=== PATIENT | female | born 1955 | race African-American/Black ===

== ENCOUNTER 2017-03-20 01:46 | Emergency (ER) | payer MEDICARE, MEDICAID | END 2017-03-20 05:11 | disposition home or self-care (01) | LOC: ERS 01:46 | DX: M10.9 Gout, unspecified (principal); I10 Essential (primary) hypertension; E66.9 Obesity, unspecified | CPT/HCPCS: 99283 ==

== ENCOUNTER 2017-03-27 08:35 | Emergency (ER) | payer MEDICARE, MEDICAID ==
--- NOTE | 2017-03-27 09:27 | RAD ---
FRONTAL VIEW CHEST: Comparison: 04-23-08 Indication: Cough with difficulty breathing. FINDINGS: The cardiac silhouette is prominent. No lobar consolidation, significant effusion, or discrete pneumo thorax. IMPRESSION: 1. No focal consolidation. 2. Prominent cardiac silhouette. POS: [facility]
[2017-03-27] MEDS ORDERED: Lisinopril/Hydrochlorothiazide 20 mg/12.5 mg Tablet PO SCH (10:00)
== END 2017-03-27 10:42 | disposition home or self-care (01) ==
LOC: ERS 08:35
DX: J20.9 Acute bronchitis, unspecified (principal); I10 Essential (primary) hypertension; J45.909 Unspecified asthma, uncomplicated; E66.9 Obesity, unspecified; M10.9 Gout, unspecified; Z79.899 Other long term (current) drug therapy
CPT/HCPCS: 71045; 93005; 94640; J7620

== ENCOUNTER 2018-04-05 11:31 | Emergency (ER) | payer MEDICARE, OTHER ==
[2018-04-05] MEDS ORDERED: predniSONE 20 MG TAB ONE (12:37)
--- NOTE | 2018-04-05 14:03 | RAD ---
PORTABLE CHEST: HISTORY: Cough. COMPARISON: 03/27/2017 FINDINGS: Heart size appears borderline to slightly enlarged. There are atherosclerotic changes of the aorta. The lungs are clear of any infiltrative process. There are no signs of failure. IMPRESSION: No active intrathoracic disease. Stable chest. POS: [facility]
== END 2018-04-05 14:30 | disposition home or self-care (01) ==
LOC: ERS 11:31
DX: J45.901 Unspecified asthma with (acute) exacerbation (principal); I10 Essential (primary) hypertension; E66.9 Obesity, unspecified; J45.909 Unspecified asthma, uncomplicated; F32.9 Major depressive disorder, single episode, unspecified
CPT/HCPCS: 71045; 94640; J7506; J7620

== ENCOUNTER 2023-05-06 07:53 | Inpatient (IN) | payer OTHER ==
[2023-05-06] MEDS ORDERED: Ipratropium/Albuterol 3 ML NEB ONE ×2 (08:38→14:57)
[2023-05-06 08:40] LABS: #Basophils 0.1 thou/uL (0.0-0.2); #Eosinphils 0.1 thou/uL (0.0-0.7); #Monocytes 0.8 thou/uL (0.11-0.59); #Neutrophils 3.1 thou/uL (1.40-6.50); %Basophils 0.9 % (0.0-1.0); %Eosinophils 1.1 % (0.0-10.0); %Lymphocytes 24.6 % (21.0-51.0); %Monocytes 14.8 % (0.0-10.0); %Neutrophils 58.4 % (42.0-75.0); Hematocrit 39.6 % (36.0-47.0); Hemoglobin 12.2 g/dL (12.0-16.0); Mean Corpuscular HGB CONC 30.8 g/dL (32.0-36.0); Mean Corpuscular Hemoglobin 29.8 pg (27.0-31.0); Mean Corpuscular Volume 96.6 fl (78.0-98.0); Mean Platelet Volume 11.6 fL (7.4-10.4); Platelet Count 179 10x3/uL (130-400); RBC Distribution Width 14.5 % (11.5-14.5); White Blood Cell (WBC) Count 5.3 10x3/uL (4.8-10.8)
[2023-05-06 08:56] LABS: ALT (SGPT) 21 U/L (8-55); AST (SGOT) 25 U/L (5-34); Alkaline Phosphatase 116 U/L (40-110); Anion Gap 14 mmol/L (10-20); BUN (Urea Nitrogen) 12 mg/dL (9.8-20.1); Calc. Creatinine Clearance 0 mL/min (70-130); Calcium 9.4 mg/dL (7.8-10.44); Carbon Dioxide 28 mmol/L (23-31); Chloride 98 mmol/L (98-107); Estimated GFR 78; Globulin 3.7 g/dL (2.4-3.5); Glucose 98 mg/dL (80-115); Potassium 4.2 mmol/L (3.5-5.1); Protein, Total 7.7 g/dL (5.8-8.1); Sodium 136 mmol/L (136-145)
[2023-05-06 09:01] LABS: Troponin I 0.022 ng/mL (< 0.028)
[2023-05-06] MEDS ORDERED: Enoxaparin 80 MG (0.8 mL) SYRINGE ONE (09:08)
[2023-05-06] MEDS ORDERED: Aspirin Chewable 81 MG TAB ONE (09:08)
[2023-05-06] MEDS ORDERED: methylPREDNISolone Sod Succ/PF 125 MG/2 ML VIAL ONE (09:08)
[2023-05-06] MEDS ORDERED: dilTIAZem 25 MG/5 ML VIAL ONE (09:09)
[2023-05-06 09:15] LABS: INR-International Normal Ratio 1.1; PTT 34.6 sec (22.9-36.1); Prothrombin Time 14.4 sec (12.0-14.7)
[2023-05-06] MEDS ORDERED: Furosemide 40 MG (4 mL) VIAL ONE ×2 (10:08→14:53)
[2023-05-06] MEDS ORDERED: hydrALAZINE 20 MG/ML VIAL SLOW IVP PRN (10:44)
[2023-05-06] MEDS ORDERED: dilTIAZem 125 MG in Sodium Chloride 0.9% 100 ML IVPB SCH (11:15)
[2023-05-06 11:26] LABS: Hemoglobin A1c 5.1 % (4.0-6.0)
[2023-05-06 11:29] LABS: Cardiac Risk 3.2 (Less than 4.5)
[2023-05-06] MEDS ORDERED: hydrALAZINE 20 MG/ML VIAL ONE (11:40)
[2023-05-06 11:43] LABS: Magnesium 1.9 mg/dL (1.6-2.6)
[2023-05-06 12:13] LABS: Troponin I 0.018 ng/mL (< 0.028)
[2023-05-06] MEDS: dilTIAZem 125 MG, Admixture Fee 1 EACH in Sodium Chloride 0.9% 100 ML IVPB SCH (13:41)
[2023-05-06] MEDS: Furosemide 40 MG (4 mL) VIAL SLOW IVP SCH (15:45)
[2023-05-06 16:56] VITALS: BMI 60.2
[2023-05-06] MEDS: Carvedilol 3.125 MG TAB PO SCH (20:35)
[2023-05-06] MEDS: Acetaminophen 325 MG TAB PO PRN (20:51)
[2023-05-06] MEDS: clonazePAM 1 MG TAB PO PRN (20:52)
[2023-05-06] MEDS: Albuterol 2.5 MG (3 mL) NEB NEB PRN (20:57)
[2023-05-06] MEDS: Ketorolac Tromethamine 30 MG (1 mL) VIAL IVP SCH (22:11)
[2023-05-06] MEDS: Enoxaparin 80 MG (0.8 mL) SYRINGE SC SCH (22:14)
[2023-05-06] MEDS: Enoxaparin 100 MG (1 mL) SYRINGE SC SCH (22:14)
[2023-05-07 02:54] LABS: #Monocytes 0.4 thou/uL (0.11-0.59); #Neutrophils 4.7 thou/uL (1.40-6.50); %Lymphocytes 8.2 % (21.0-51.0); %Monocytes 7.2 % (0.0-10.0); %Neutrophils 83.9 % (42.0-75.0); Hematocrit 35.7 % (36.0-47.0); Hemoglobin 11.3 g/dL (12.0-16.0); Mean Corpuscular HGB CONC 31.7 g/dL (32.0-36.0); Mean Corpuscular Hemoglobin 30.3 pg (27.0-31.0); Mean Corpuscular Volume 95.7 fl (78.0-98.0); Mean Platelet Volume 11.8 fL (7.4-10.4); Platelet Count 182 10x3/uL (130-400); RBC Distribution Width 14.5 % (11.5-14.5); Red Blood Cell (RBC) Count 3.73 mill/uL (4.20-5.40); White Blood Cell (WBC) Count 5.6 10x3/uL (4.8-10.8)
[2023-05-07 03:14] LABS: Troponin I 0.021 ng/mL (< 0.028)
[2023-05-07 03:16] LABS: Magnesium 1.7 mg/dL (1.6-2.6)
[2023-05-07 03:20] LABS: Anion Gap 16 mmol/L (10-20); BUN (Urea Nitrogen) 12 mg/dL (9.8-20.1); Calc. Creatinine Clearance 197 mL/min (70-130); Calcium 9.1 mg/dL (7.8-10.44); Carbon Dioxide 28 mmol/L (23-31); Chloride 97 mmol/L (98-107); Estimated GFR 87; Glucose 168 mg/dL (80-115); Potassium 3.8 mmol/L (3.5-5.1); Sodium 137 mmol/L (136-145)
[2023-05-07] MEDS: dilTIAZem 125 MG, Admixture Fee 1 EACH in Sodium Chloride 0.9% 100 ML IVPB SCH (05:54)
[2023-05-07] MEDS: Mometasone 200 MCG/Formoterol 5 MCG 120 PUFF INHALER INH SCH (07:25)
[2023-05-07] MEDS ORDERED: Electrolyte Replacement Protocol FS PRN (07:45)
[2023-05-07] MEDS: Magnesium 2 GM/50 ML(in water) 2 GM in Premix 1 BAG IVPB SCH (09:33)
[2023-05-07] MEDS: Losartan 25 MG TAB PO SCH (09:34)
[2023-05-07] MEDS: Enoxaparin 100 MG (1 mL) SYRINGE SC SCH (09:35)
[2023-05-07] MEDS: Enoxaparin 80 MG (0.8 mL) SYRINGE SC SCH (09:35)
[2023-05-07] MEDS: ALPRAZolam 1 MG TAB PO PRN (22:35)
[2023-05-07] MEDS: traMADol HCl 50 MG TAB PO SCH (22:35)
[2023-05-08 05:43] LABS: #Monocytes 1.3 thou/uL (0.11-0.59); #Neutrophils 7.8 thou/uL (1.40-6.50); %Basophils 0.1 % (0.0-1.0); %Eosinophils 0.1 % (0.0-10.0); %Lymphocytes 12.8 % (21.0-51.0); %Monocytes 12.1 % (0.0-10.0); %Neutrophils 74.6 % (42.0-75.0); Hematocrit 37.4 % (36.0-47.0); Hemoglobin 11.7 g/dL (12.0-16.0); Mean Corpuscular HGB CONC 31.3 g/dL (32.0-36.0); Mean Corpuscular Hemoglobin 30.6 pg (27.0-31.0); Mean Corpuscular Volume 97.9 fl (78.0-98.0); Mean Platelet Volume 11.3 fL (7.4-10.4); Platelet Count 218 10x3/uL (130-400); RBC Distribution Width 14.8 % (11.5-14.5); Red Blood Cell (RBC) Count 3.82 mill/uL (4.20-5.40); White Blood Cell (WBC) Count 10.4 10x3/uL (4.8-10.8)
[2023-05-08] MEDS: Losartan 25 MG TAB PO SCH (08:34)
[2023-05-08] MEDS: traMADol HCl 50 MG TAB PO PRN (08:34)
[2023-05-08 09:28] LABS: Anion Gap 16 mmol/L (10-20); BUN (Urea Nitrogen) 16 mg/dL (9.8-20.1); Calc. Creatinine Clearance 166 mL/min (70-130); Calcium 8.8 mg/dL (7.8-10.44); Carbon Dioxide 30 mmol/L (23-31); Chloride 97 mmol/L (98-107); Estimated GFR 73; Glucose 105 mg/dL (80-115); Potassium 3.6 mmol/L (3.5-5.1); Sodium 139 mmol/L (136-145)
[2023-05-08] MEDS: FLU VACC QS2023(65UP)/MF59C/PF 60 MCG/0.5 ML SYRINGE IM ONE (21:33)
[2023-05-08] MEDS: dilTIAZem 125 MG, Admixture Fee 1 EACH in Sodium Chloride 0.9% 100 ML IVPB SCH (21:35)
[2023-05-09 06:26] LABS: Hematocrit 39.9 % (36.0-47.0); Hemoglobin 11.8 g/dL (12.0-16.0); Manual Diff?? YES; Mean Corpuscular HGB CONC 29.6 g/dL (32.0-36.0); Mean Corpuscular Hemoglobin 29.9 pg (27.0-31.0); Mean Platelet Volume 11.9 fL (7.4-10.4); Platelet Count 217 10x3/uL (130-400); RBC Distribution Width 14.6 % (11.5-14.5); Red Blood Cell (RBC) Count 3.95 mill/uL (4.20-5.40); White Blood Cell (WBC) Count 6.3 10x3/uL (4.8-10.8)
[2023-05-09 06:47] LABS: Anion Gap 13 mmol/L (10-20); BUN (Urea Nitrogen) 19 mg/dL (9.8-20.1); Calc. Creatinine Clearance 146 mL/min (70-130); Calcium 9.3 mg/dL (7.8-10.44); Carbon Dioxide 36 mmol/L (23-31); Chloride 93 mmol/L (98-107); Estimated GFR 62; Glucose 73 mg/dL (80-115); Potassium 4.4 mmol/L (3.5-5.1); Sodium 138 mmol/L (136-145)
[2023-05-09 06:59] LABS: Delete Auto Diff?? YES
[2023-05-09 07:45] LABS: CellaVision Operator ID LAB.KW3; Hypochromia SLIGHT = 6-15 cells HPF (0-5); Lymphocytes 39 % (21-51); Monocytes 18 % (0-10); Neutrophil 40 % (42-75); Platelet Adequacy Comment Platelets Normal; Polychromasia SLIGHT = 2-3 cells HPF (0-2); Reactive Lymphocytes 2 % (0-10); Total Cell Count 100
[2023-05-09] MEDS: Metolazone 2.5 MG TAB PO SCH (16:21)
[2023-05-09] MEDS: ALPRAZolam 1 MG TAB PO SCH (20:40)
[2023-05-10] MEDS ORDERED: Regadenoson 0.4 MG/5 ML SYRINGE ONE (09:38)
[2023-05-10] MEDS: Enoxaparin 80 MG (0.8 mL) SYRINGE SC SCH (11:16)
[2023-05-10 15:49] VITALS: BP 136/64; TEMP 97.6
[2023-05-10] MEDS: Rivaroxaban 10 MG TAB PO SCH (17:21)
[2023-05-10] MEDS ORDERED: Apixaban 5 MG TAB PO SCH (21:00)
[2023-05-11] MEDS ORDERED: Rivaroxaban 10 MG TAB PO SCH (17:00)
== END 2023-05-10 19:20 | disposition home or self-care (01) | DRG 291 ==
LOC: ERS 07:53 → ERHOLD 10:09 → 2NO 16:18 → OBSVTOIN 05-07 09:10
PROVIDERS: ADMIT Family Medicine; ATTEND Family Medicine
DX: I11.0 Hypertensive heart disease with heart failure (principal); I50.43 Acute on chronic combined systolic (congestive) and diastolic (congestive) heart failure; Z68.44 Body mass index [BMI] 60.0-69.9, adult; J45.909 Unspecified asthma, uncomplicated; I42.9 Cardiomyopathy, unspecified; M10.9 Gout, unspecified; E66.01 Morbid (severe) obesity due to excess calories; I48.91 Unspecified atrial fibrillation; F41.9 Anxiety disorder, unspecified; Z79.51 Long term (current) use of inhaled steroids; Z79.899 Other long term (current) drug therapy; Z91.199 Patient's noncompliance with other medical treatment and regimen due to unspecified reason
CPT/HCPCS: 36415; 71045; 78452; 80048; 80053; 80061; 83036; 83605; 83735; 83880; 84443; 84484; 85025; 85520; 85610; 85730; 93005; 93017; 93306; 94640; 94760; 96372; 96374; 96375; A9502; J0360; J1650; J1885; J1940; J2785; J2930; J3475; J3490; J7611; J7620

== ENCOUNTER 2023-09-18 07:50 | Inpatient (IN) | payer OTHER ==
[2023-09-18] MEDS ORDERED: cefTRIAXone (ROCEPHIN) 2 GM VIAL ONE ×2 (09:34→09:54)
[2023-09-18] MEDS ORDERED: Furosemide 40 MG (4 mL) VIAL ONE (09:34)
[2023-09-18] MEDS ORDERED: Nitroglycerin 2% Ointment 1 INCH/1 GM Packet ONE (09:34)
[2023-09-18] MEDS ORDERED: Sodium Chloride 0.9% 100 ML ONE ×2 (09:34→09:54)
[2023-09-18] MEDS ORDERED: dilTIAZem 25 MG/5 ML VIAL ONE (09:35)
[2023-09-18 09:41] LABS: #Basophils 0.06 10x3/uL (0.0-0.2); %Basophils 0.9 % (0.0-1.0); %Lymphocytes 12.3 % (21.0-51.0); %Monocytes 13.7 % (0.0-10.0); %Neutrophils 70.8 % (42.0-75.0); Hematocrit 38.2 % (36.0-47.0); Hemoglobin 12.1 g/dL (12.0-16.0); Mean Corpuscular HGB CONC 31.7 g/dL (32.0-36.0); Mean Corpuscular Volume 94.6 fL (78.0-98.0); Mean Platelet Volume 11.9 fL (7.4-10.4); Platelet Count 165 10x3/uL (130-400); RBC Distribution Width 16.8 % (11.5-14.5); Red Blood Cell (RBC) Count 4.04 mill/uL (4.20-5.40)
[2023-09-18 09:59] LABS: ALT (SGPT) 29 U/L (8-55); AST (SGOT) 29 U/L (5-34); Albumin 3.7 g/dL (3.4-4.8); Alkaline Phosphatase 138 U/L (40-110); Anion Gap 14 mmol/L (10-20); BUN (Urea Nitrogen) 19 mg/dL (9.8-20.1); Bilirubin, Total 2.1 mg/dL (0.2-1.2); Calc. Creatinine Clearance 0 mL/min (70-130); Calcium 9.4 mg/dL (7.8-10.44); Carbon Dioxide 32 mmol/L (23-31); Chloride 100 mmol/L (98-107); Estimated GFR 76; Globulin 3.8 g/dL (2.4-3.5); Glucose 97 mg/dL (80-115); Magnesium 1.8 mg/dL (1.6-2.6); Potassium 3.4 mmol/L (3.5-5.1); Protein, Total 7.5 g/dL (5.8-8.1); Sodium 143 mmol/L (136-145)
[2023-09-18 10:05] LABS: Troponin I 0.015 ng/mL (< 0.028)
[2023-09-18] MEDS ORDERED: Acetaminophen 325 MG TAB PO PRN (11:45)
[2023-09-18] MEDS ORDERED: Senokot S 8.6-50 MG TAB PO PRN (11:45)
[2023-09-18 17:56] VITALS: BMI 55.2
[2023-09-18] MEDS: Potassium Chloride 20 MEQ TAB PO SCH ×2 (19:28→20:22)
[2023-09-18] MEDS: Furosemide 40 MG (4 mL) VIAL SLOW IVP SCH (20:22)
[2023-09-18] MEDS: Vancomycin (BATCH) 2.5 GM in Premix 1 BAG IVPB SCH (20:22)
[2023-09-18] MEDS: Famotidine 20 MG TAB PO SCH (22:36)
[2023-09-19] MEDS: Ipratropium/Albuterol 3 ML NEB NEB PRN (06:28)
[2023-09-19] MEDS: HYDROcodone/Acetaminophen 5/325 mg Tablet PO PRN (08:00)
[2023-09-19] MEDS: Losartan 25 MG TAB PO SCH (08:01)
[2023-09-19] MEDS: Enoxaparin 40 MG (0.4 mL) SYRINGE SC SCH (08:01)
[2023-09-19] MEDS: Apixaban 5 MG TAB PO SCH (20:42)
[2023-09-19 23:54] LABS: Anion Gap 13 mmol/L (10-20); BUN (Urea Nitrogen) 20 mg/dL (9.8-20.1); Calc. Creatinine Clearance 158 mL/min (70-130); Calcium 9.2 mg/dL (7.8-10.44); Carbon Dioxide 33 mmol/L (23-31); Chloride 102 mmol/L (98-107); Estimated GFR 75; Glucose 82 mg/dL (80-115); Potassium 4.4 mmol/L (3.5-5.1); Sodium 144 mmol/L (136-145)
[2023-09-20 00:02] LABS: Troponin I 0.011 ng/mL (< 0.028)
[2023-09-20 05:22] LABS: #Basophils 0.06 10x3/uL (0.0-0.2); %Basophils 0.9 % (0.0-1.0); %Eosinophils 4.1 % (0.0-10.0); %Monocytes 16.8 % (0.0-10.0); Hematocrit 35.2 % (36.0-47.0); Mean Corpuscular HGB CONC 31.3 g/dL (32.0-36.0); Mean Corpuscular Hemoglobin 29.5 pg (27.0-31.0); Mean Corpuscular Volume 94.4 fL (78.0-98.0); Mean Platelet Volume 12.1 fL (7.4-10.4); Platelet Count 162 10x3/uL (130-400); RBC Distribution Width 16.6 % (11.5-14.5); Red Blood Cell (RBC) Count 3.73 mill/uL (4.20-5.40)
[2023-09-20 05:42] LABS: Anion Gap 14 mmol/L (10-20); BUN (Urea Nitrogen) 21 mg/dL (9.8-20.1); Calc. Creatinine Clearance 167 mL/min (70-130); Calcium 8.7 mg/dL (7.8-10.44); Carbon Dioxide 34 mmol/L (23-31); Chloride 101 mmol/L (98-107); Estimated GFR 79; Glucose 95 mg/dL (80-115); Magnesium 1.5 mg/dL (1.6-2.6); Sodium 145 mmol/L (136-145)
[2023-09-20] MEDS ORDERED: Magnesium Sulfate 4 GM in Sodium Chloride 0.9% 250 ML 250 ML IVPB SCH (07:30)
[2023-09-20] MEDS ORDERED: Electrolyte Replacement Protocol 1 EACH FS SCH (07:30)
[2023-09-20] MEDS ORDERED: Electrolyte Replacement Protocol FS PRN (08:00)
[2023-09-20 08:15] VITALS: BMI 55.0
[2023-09-20] MEDS: Magnesium Sulfate In Water 4 GM in Premix 1 BAG IVPB SCH (08:49)
[2023-09-20] MEDS: Aspirin 81 mg Enteric Coated Tablet PO SCH (08:50)
[2023-09-20] MEDS: Empagliflozin 10 MG TAB PO SCH (08:51)
[2023-09-20] MEDS: Cefepime 2 GM in Sodium Chloride 0.9% 100 ML IVPB SCH (21:13)
[2023-09-20] MEDS: Vancomycin (BATCH) 2 GM in Premix 1 BAG IVPB SCH (22:03)
[2023-09-21 04:17] LABS: #Basophils 0.08 10x3/uL (0.0-0.2); %Basophils 1.2 % (0.0-1.0); %Eosinophils 5.2 % (0.0-10.0); %Monocytes 18.5 % (0.0-10.0); %Neutrophils 52.9 % (42.0-75.0); Hematocrit 40.2 % (36.0-47.0); Hemoglobin 12.1 g/dL (12.0-16.0); Mean Corpuscular HGB CONC 30.1 g/dL (32.0-36.0); Mean Corpuscular Hemoglobin 30.3 pg (27.0-31.0); Mean Corpuscular Volume 100.5 fL (78.0-98.0); Mean Platelet Volume 11.6 fL (7.4-10.4); Platelet Count 198 10x3/uL (130-400); RBC Distribution Width 16.5 % (11.5-14.5)
[2023-09-21 04:39] LABS: Vancomycin, Random 22.4 ug/mL (See Comment)
[2023-09-21 04:44] LABS: Anion Gap 18 mmol/L (10-20); BUN (Urea Nitrogen) 22 mg/dL (9.8-20.1); Calc. Creatinine Clearance 163 mL/min (70-130); Carbon Dioxide 30 mmol/L (23-31); Cardiac Risk 4.1 (Less than 4.5); Chloride 100 mmol/L (98-107); Cholesterol 119 mg/dl (< 200 Desired); Estimated GFR 77; Glucose 66 mg/dL (80-115); HDL Cholesterol 29 mg/dL (>60 Neg Risk); LDL Cholesterol, Calculated 81 mg/dL; Magnesium 1.8 mg/dL (1.6-2.6); Potassium 4.7 mmol/L (3.5-5.1); Sodium 143 mmol/L (136-145); Triglycerides 44 mg/dL (Less than 150)
[2023-09-21] MEDS: Vancomycin 1 GM in Premix 1 BAG IVPB SCH (11:42)
[2023-09-21] MEDS: Magnesium 2 GM/50 ML(in water) 2 GM in Premix 1 BAG IVPB SCH (15:14)
[2023-09-21] MEDS: Vancomycin HCl 750 MG in Sodium Chloride 0.9% 250 ML 250 ML IVPB SCH ×2 (23:12→23:27)
[2023-09-21] MEDS: VANCOMYCIN HCL IVPB SCH (23:30)
[2023-09-22 05:45] LABS: #Basophils 0.05 10x3/uL (0.0-0.2); %Basophils 0.6 % (0.0-1.0); %Eosinophils 3.4 % (0.0-10.0); %Lymphocytes 15.1 % (21.0-51.0); %Monocytes 17.7 % (0.0-10.0); %Neutrophils 62.7 % (42.0-75.0); Hematocrit 38.5 % (36.0-47.0); Hemoglobin 11.8 g/dL (12.0-16.0); Mean Corpuscular HGB CONC 30.6 g/dL (32.0-36.0); Mean Corpuscular Hemoglobin 30.3 pg (27.0-31.0); Mean Corpuscular Volume 98.7 fL (78.0-98.0); Mean Platelet Volume 11.2 fL (7.4-10.4); Platelet Count 184 10x3/uL (130-400); RBC Distribution Width 16.4 % (11.5-14.5)
[2023-09-22 05:56] LABS: Vancomycin, Random 26.6 ug/mL (See Comment)
[2023-09-22 06:03] LABS: Anion Gap 15 mmol/L (10-20); BUN (Urea Nitrogen) 24 mg/dL (9.8-20.1); Calc. Creatinine Clearance 156 mL/min (70-130); Calcium 8.9 mg/dL (7.8-10.44); Carbon Dioxide 32 mmol/L (23-31); Chloride 98 mmol/L (98-107); Estimated GFR 73; Glucose 87 mg/dL (80-115); Potassium 5.3 mmol/L (3.5-5.1); Sodium 140 mmol/L (136-145)
[2023-09-22] MEDS: Magnesium 2 GM/50 ML(in water) 2 GM in Premix 1 BAG IVPB SCH (08:59)
[2023-09-22 14:57] LABS: Anion Gap 13 mmol/L (10-20); BUN (Urea Nitrogen) 24 mg/dL (9.8-20.1); Calc. Creatinine Clearance 152 mL/min (70-130); Calcium 8.9 mg/dL (7.8-10.44); Carbon Dioxide 32 mmol/L (23-31); Chloride 97 mmol/L (98-107); Estimated GFR 71; Glucose 98 mg/dL (80-115); Sodium 137 mmol/L (136-145)
[2023-09-22] MEDS: Vancomycin 1 GM in Premix 1 BAG IVPB SCH (22:08)
[2023-09-23 04:14] LABS: #Basophils 0.09 10x3/uL (0.0-0.2); %Eosinophils 4.6 % (0.0-10.0); %Lymphocytes 12.9 % (21.0-51.0); %Monocytes 17.3 % (0.0-10.0); Hemoglobin 12.3 g/dL (12.0-16.0); Mean Corpuscular HGB CONC 32.4 g/dL (32.0-36.0); Mean Corpuscular Volume 92.7 fL (78.0-98.0); Mean Platelet Volume 10.9 fL (7.4-10.4); Platelet Count 163 10x3/uL (130-400); RBC Distribution Width 16.1 % (11.5-14.5)
[2023-09-23 04:56] LABS: Anion Gap 13 mmol/L (10-20); BUN (Urea Nitrogen) 26 mg/dL (9.8-20.1); Calc. Creatinine Clearance 157 mL/min (70-130); Calcium 9.1 mg/dL (7.8-10.44); Carbon Dioxide 31 mmol/L (23-31); Chloride 95 mmol/L (98-107); Estimated GFR 74; Glucose 84 mg/dL (80-115); Magnesium 2.1 mg/dL (1.6-2.6); Sodium 134 mmol/L (136-145)
[2023-09-23] MEDS: HYDROcodone/Acetaminophen 5/325 mg Tablet PO PRN (21:08)
[2023-09-24 04:20] LABS: Vancomycin, Random 35.7 ug/mL (See Comment)
[2023-09-24 04:22] LABS: Anion Gap 14 mmol/L (10-20); BUN (Urea Nitrogen) 29 mg/dL (9.8-20.1); Calc. Creatinine Clearance 147 mL/min (70-130); Calcium 8.9 mg/dL (7.8-10.44); Carbon Dioxide 33 mmol/L (23-31); Chloride 93 mmol/L (98-107); Estimated GFR 68; Glucose 96 mg/dL (80-115); Magnesium 2.1 mg/dL (1.6-2.6); Potassium 4.9 mmol/L (3.5-5.1); Sodium 135 mmol/L (136-145)
[2023-09-24 04:46] LABS: Hematocrit 35.9 % (36.0-47.0); Hemoglobin 11.4 g/dL (12.0-16.0); Mean Corpuscular HGB CONC 31.8 g/dL (32.0-36.0); Mean Corpuscular Hemoglobin 30.3 pg (27.0-31.0); Mean Corpuscular Volume 95.5 fL (78.0-98.0); Mean Platelet Volume 11.6 fL (7.4-10.4); Platelet Count 206 10x3/uL (130-400); RBC Distribution Width 15.9 % (11.5-14.5); Red Blood Cell (RBC) Count 3.76 mill/uL (4.20-5.40)
[2023-09-24 07:20] LABS: Eosinophils 11 % (0-10); Hypersegmented Neutrophil SLIGHT (None Seen); Large Platelets 5.9 % (0-5); Lymphocytes 17 % (21-51); Monocytes 16 % (0-10); Neutrophil 54 % (42-75); Platelet Adequacy Comment Platelets Normal; Polychromasia SLIGHT = 2-3 cells HPF (0-2)
[2023-09-24] MEDS: Furosemide 40 MG TAB PO SCH (09:56)
[2023-09-25 05:05] LABS: #Basophils 0.06 10x3/uL (0.0-0.2); %Basophils 0.7 % (0.0-1.0); %Eosinophils 3.5 % (0.0-10.0); %Lymphocytes 14.6 % (21.0-51.0); %Monocytes 18.4 % (0.0-10.0); %Neutrophils 62.2 % (42.0-75.0); Hemoglobin 10.4 g/dL (12.0-16.0); Mean Corpuscular HGB CONC 31.5 g/dL (32.0-36.0); Mean Corpuscular Volume 95.1 fL (78.0-98.0); Mean Platelet Volume 11.9 fL (7.4-10.4); Platelet Count 191 10x3/uL (130-400); RBC Distribution Width 15.8 % (11.5-14.5); Red Blood Cell (RBC) Count 3.47 mill/uL (4.20-5.40)
[2023-09-25 05:41] LABS: Anion Gap 18 mmol/L (10-20); BUN (Urea Nitrogen) 25 mg/dL (9.8-20.1); Calc. Creatinine Clearance 169 mL/min (70-130); Calcium 8.8 mg/dL (7.8-10.44); Carbon Dioxide 28 mmol/L (23-31); Chloride 94 mmol/L (98-107); Estimated GFR 83; Glucose 94 mg/dL (80-115); Magnesium 2.1 mg/dL (1.6-2.6); Potassium 5.3 mmol/L (3.5-5.1); Sodium 135 mmol/L (136-145)
[2023-09-25] MEDS ORDERED: Vancomycin (BATCH) 1.25 GM in Premix 1 BAG IVPB SCH ×2 (10:00→12:00)
[2023-09-25] MEDS ORDERED: Ibuprofen 200 MG TAB PO PRN (12:27)
[2023-09-25] MEDS: Furosemide 40 MG (4 mL) VIAL SLOW IVP SCH (14:02)
[2023-09-25] MEDS: LOKELMA 5 GM PACKET PO SCH (14:03)
[2023-09-26] MEDS: HYDROcodone/Acetaminophen 5/325 mg Tablet PO PRN (04:35)
[2023-09-26 05:17] LABS: #Basophils 0.05 10x3/uL (0.0-0.2); %Basophils 0.6 % (0.0-1.0); %Eosinophils 5.4 % (0.0-10.0); %Lymphocytes 15.3 % (21.0-51.0); %Neutrophils 63.5 % (42.0-75.0); Hematocrit 35.3 % (36.0-47.0); Hemoglobin 11.1 g/dL (12.0-16.0); Mean Corpuscular HGB CONC 31.4 g/dL (32.0-36.0); Mean Corpuscular Hemoglobin 30.6 pg (27.0-31.0); Mean Corpuscular Volume 97.2 fL (78.0-98.0); Mean Platelet Volume 11.6 fL (7.4-10.4); Platelet Count 234 10x3/uL (130-400); RBC Distribution Width 15.6 % (11.5-14.5); Red Blood Cell (RBC) Count 3.63 mill/uL (4.20-5.40)
[2023-09-26 05:39] LABS: Anion Gap 14 mmol/L (10-20); BUN (Urea Nitrogen) 23 mg/dL (9.8-20.1); Calc. Creatinine Clearance 180 mL/min (70-130); Calcium 9.2 mg/dL (7.8-10.44); Carbon Dioxide 31 mmol/L (23-31); Chloride 96 mmol/L (98-107); Estimated GFR 88; Glucose 97 mg/dL (80-115); Magnesium 2.2 mg/dL (1.6-2.6); Potassium 4.2 mmol/L (3.5-5.1); Sodium 137 mmol/L (136-145)
[2023-09-26] MEDS: dilTIAZem CD 120 MG CAP PO SCH (08:15)
[2023-09-26] MEDS ORDERED: Acetaminophen 500 MG TAB PO PRN (22:28)
[2023-09-27 15:50] VITALS: BP 114/74; TEMP 98.2
== END 2023-09-27 21:30 | disposition home health service (06) | DRG 291 ==
LOC: ERS 07:50 → ERHOLD 11:19 → 2NO 17:22
PROVIDERS: ADMIT Hospitalist; ATTEND Family Medicine
DX: I11.0 Hypertensive heart disease with heart failure (principal); I50.23 Acute on chronic systolic (congestive) heart failure; Z68.43 Body mass index [BMI] 50.0-59.9, adult; E66.01 Morbid (severe) obesity due to excess calories; I48.91 Unspecified atrial fibrillation; Z79.899 Other long term (current) drug therapy; M10.9 Gout, unspecified; F32.A Depression, unspecified; Z91.148 Patient's other noncompliance with medication regimen for other reason; Z79.01 Long term (current) use of anticoagulants; Z79.82 Long term (current) use of aspirin; E83.42 Hypomagnesemia; E87.5 Hyperkalemia; I07.1 Rheumatic tricuspid insufficiency
CPT/HCPCS: 36415; 36416; 71045; 80048; 80053; 80061; 80202; 83605; 83735; 83880; 84443; 84484; 85025; 87040; 87149; 93005; 93010; 93306; 93923; 94640; 96365; 96366; 96375; 97139; J0692; J0696; J1650; J1940; J3370; J3370-JW; J3475; J3490; J7050; J7620

== ENCOUNTER 2023-10-01 20:18 | Inpatient (IN) | payer OTHER ==
[2023-10-01 21:13] LABS: #Basophils 0.03 10x3/uL (0.0-0.2); %Basophils 0.3 % (0.0-1.0); %Eosinophils 0.5 % (0.0-10.0); %Monocytes 13.1 % (0.0-10.0); %Neutrophils 75.9 % (42.0-75.0); Hematocrit 35.2 % (36.0-47.0); Mean Corpuscular HGB CONC 31.3 g/dL (32.0-36.0); Mean Corpuscular Hemoglobin 30.5 pg (27.0-31.0); Mean Corpuscular Volume 97.5 fL (78.0-98.0); Mean Platelet Volume 10.7 fL (7.4-10.4); Platelet Count 296 10x3/uL (130-400); RBC Distribution Width 14.6 % (11.5-14.5); Red Blood Cell (RBC) Count 3.61 mill/uL (4.20-5.40)
[2023-10-01 21:27] LABS: INR-International Normal Ratio 1.3; PTT 40.7 sec (22.9-36.1); Prothrombin Time 15.8 sec (12.0-14.7)
[2023-10-01] MEDS ORDERED: Ipratropium/Albuterol 3 ML NEB ONE (21:30)
[2023-10-01 21:38] LABS: Acetaminophen Less than 10 mcg/mL (10.0-30.0); Alcohol Less than 10.0 mg/dL (Less than 10); Lipase 15 U/L (8-78); Magnesium 2.2 mg/dL (1.6-2.6); Salicylate Less than 8.0 mg/dL (15.0-30.0)
[2023-10-01] MEDS ORDERED: methylPREDNISolone Sod Succ/PF 125 MG/2 ML VIAL ONE (21:39)
[2023-10-01 21:44] LABS: Troponin I Less than 0.010 ng/mL (< 0.028)
[2023-10-01 21:58] LABS: ALT (SGPT) 50 U/L (8-55); AST (SGOT) 42 U/L (5-34); Albumin 3.1 g/dL (3.4-4.8); Alkaline Phosphatase 319 U/L (40-110); Anion Gap 14 mmol/L (10-20); BUN (Urea Nitrogen) 17 mg/dL (9.8-20.1); Bilirubin, Total 1.6 mg/dL (0.2-1.2); CK (CPK) 32 U/L (29-168); Calc. Creatinine Clearance 0 mL/min (70-130); Calcium 9.7 mg/dL (7.8-10.44); Carbon Dioxide 33 mmol/L (23-31); Chloride 95 mmol/L (98-107); Estimated GFR 93; Globulin 4.7 g/dL (2.4-3.5); Glucose 95 mg/dL (80-115); Protein, Total 7.8 g/dL (5.8-8.1); Sodium 138 mmol/L (136-145)
[2023-10-01] MEDS ORDERED: Furosemide 40 MG (4 mL) VIAL ONE (22:14)
[2023-10-01 22:23] LABS: Influenza A by NAA Not Detected (NotDetected); Influenza B by NAA Not Detected (NotDetected); SARS-CoV-2 NAA Rapid Test Not Detected (NotDetected)
[2023-10-01] MEDS ORDERED: Ondansetron PF 4 MG/2 ML Vial IVP PRN (23:51)
[2023-10-01] MEDS ORDERED: Acetaminophen 325 MG TAB PO PRN (23:51)
[2023-10-02 01:07] LABS: Bacteria/HPF 4+ HPF (None Seen); Bilirubin Negative (Negative); Blood, Urine 1+ (Negative); CAUTI Indications for Culture Fever or rigors; Clarity Turbid (Clear); Glucose, Urine (Dipstick) Normal (Negative); Ketone, Urine Negative (Negative); Leukocyte Negative Leu/uL (Negative); Nitrite Negative (Negative); Protein, Urine (Dipstick) Negative (Neg-Trace); Squamous Epithelial 0-3 HPF (0-3); Urobilinogen 3 mg/dL (Less than 2); pH, Urine 6.5 (5.0-9.0)
[2023-10-02 01:09] LABS: Urine Culture Reflex No No
[2023-10-02 01:13] LABS: Amphetamine Not Detected (NotDetected); Barbiturates Screen Not Detected (NotDetected); Benzodiazepine Screen Not Detected (NotDetected); Cocaine Metabolite Screen Detected (NotDetected); Methadone Not Detected (NotDetected); Methamphetamine Not Detected (NotDetected); Opiate Screen Detected (NotDetected); Oxycodone Screen Not Detected (NotDetected); Phencyclidine (PCP) Not Detected (NotDetected); THC/Cannabinoid Screen Not Detected (NotDetected); Tricyclic Screen Not Detected (NotDetected)
[2023-10-02] MEDS: Metoprolol Tartrate 5 MG (5 mL) VIAL IVP SCH (02:12)
[2023-10-02] MEDS: Apixaban 5 MG TAB PO SCH ×2 (02:13→09:34)
[2023-10-02] MEDS: Acetaminophen/Codeine 30-300mg Tablet PO PRN (02:13)
[2023-10-02 02:22] VITALS: BMI 52.2
[2023-10-02] MEDS: dilTIAZem CD 120 MG CAP PO SCH ×2 (03:08→09:35)
[2023-10-02 04:25] LABS: #Basophils Less than 0.03 10x3/uL (0.0-0.2); #Eosinphils Less than 0.03 10x3/uL (0.0-0.7); %Basophils 0.2 % (0.0-1.0); %Lymphocytes 3.2 % (21.0-51.0); %Monocytes 2.4 % (0.0-10.0); %Neutrophils 93.8 % (42.0-75.0); Hematocrit 36.6 % (36.0-47.0); Hemoglobin 11.4 g/dL (12.0-16.0); Mean Corpuscular HGB CONC 31.1 g/dL (32.0-36.0); Mean Corpuscular Hemoglobin 30.2 pg (27.0-31.0); Mean Corpuscular Volume 97.1 fL (78.0-98.0); Mean Platelet Volume 11.1 fL (7.4-10.4); Platelet Count 305 10x3/uL (130-400); RBC Distribution Width 14.6 % (11.5-14.5); Red Blood Cell (RBC) Count 3.77 mill/uL (4.20-5.40)
[2023-10-02 04:50] LABS: Anion Gap 14 mmol/L (10-20); BUN (Urea Nitrogen) 17 mg/dL (9.8-20.1); Calc. Creatinine Clearance 169 mL/min (70-130); Calcium 9.7 mg/dL (7.8-10.44); Carbon Dioxide 32 mmol/L (23-31); Chloride 93 mmol/L (98-107); Estimated GFR 86; Glucose 162 mg/dL (80-115); Magnesium 2.1 mg/dL (1.6-2.6); Potassium 4.2 mmol/L (3.5-5.1); Sodium 135 mmol/L (136-145)
[2023-10-02] MEDS: Furosemide 20 MG (2 mL) VIAL SLOW IVP SCH (05:44)
[2023-10-02] MEDS: Famotidine 20 MG TAB PO SCH (09:35)
[2023-10-02] MEDS: Aspirin 81 mg Enteric Coated Tablet PO SCH (09:35)
[2023-10-02] MEDS: Ipratropium/Albuterol 3 ML NEB NEB SCH (12:51)
[2023-10-02] MEDS: DULoxetine 30 MG CAP PO SCH (14:02)
[2023-10-02] MEDS: Sacubitril 24MG/Valsartan 26 MG TAB PO SCH (20:13)
[2023-10-03 04:33] LABS: #Basophils Less than 0.03 10x3/uL (0.0-0.2); #Eosinphils Less than 0.03 10x3/uL (0.0-0.7); %Basophils 0.1 % (0.0-1.0); %Lymphocytes 4.9 % (21.0-51.0); %Monocytes 10.1 % (0.0-10.0); %Neutrophils 84.4 % (42.0-75.0); Hematocrit 36.2 % (36.0-47.0); Hemoglobin 11.1 g/dL (12.0-16.0); Mean Corpuscular HGB CONC 30.7 g/dL (32.0-36.0); Mean Corpuscular Hemoglobin 29.8 pg (27.0-31.0); Mean Corpuscular Volume 97.3 fL (78.0-98.0); Mean Platelet Volume 11.1 fL (7.4-10.4); Platelet Count 357 10x3/uL (130-400); RBC Distribution Width 14.6 % (11.5-14.5); Red Blood Cell (RBC) Count 3.72 mill/uL (4.20-5.40)
[2023-10-03 05:00] LABS: Anion Gap 15 mmol/L (10-20); BUN (Urea Nitrogen) 25 mg/dL (9.8-20.1); Calc. Creatinine Clearance 159 mL/min (70-130); Carbon Dioxide 31 mmol/L (23-31); Chloride 94 mmol/L (98-107); Estimated GFR 79; Glucose 98 mg/dL (80-115); Magnesium 2.1 mg/dL (1.6-2.6); Potassium 4.5 mmol/L (3.5-5.1); Sodium 135 mmol/L (136-145)
[2023-10-03] MEDS: Albuterol 2.5 MG (3 mL) NEB NEB PRN (05:43)
[2023-10-03] MEDS: DULoxetine 30 MG CAP PO SCH (09:40)
[2023-10-03 12:50] VITALS: BMI 52.4
[2023-10-04 04:39] LABS: #Basophils 0.03 10x3/uL (0.0-0.2); #Eosinphils Less than 0.03 10x3/uL (0.0-0.7); %Basophils 0.2 % (0.0-1.0); %Eosinophils 0.2 % (0.0-10.0); %Lymphocytes 11.3 % (21.0-51.0); Hematocrit 36.2 % (36.0-47.0); Hemoglobin 11.2 g/dL (12.0-16.0); Mean Corpuscular HGB CONC 30.9 g/dL (32.0-36.0); Mean Corpuscular Hemoglobin 29.3 pg (27.0-31.0); Mean Corpuscular Volume 94.8 fL (78.0-98.0); Mean Platelet Volume 11.1 fL (7.4-10.4); Platelet Count 381 10x3/uL (130-400); RBC Distribution Width 14.6 % (11.5-14.5); Red Blood Cell (RBC) Count 3.82 mill/uL (4.20-5.40)
[2023-10-04 05:01] LABS: Anion Gap 15 mmol/L (10-20); BUN (Urea Nitrogen) 32 mg/dL (9.8-20.1); Calc. Creatinine Clearance 167 mL/min (70-130); Calcium 8.5 mg/dL (7.8-10.44); Carbon Dioxide 28 mmol/L (23-31); Chloride 96 mmol/L (98-107); Estimated GFR 84; Glucose 105 mg/dL (80-115); Magnesium 1.9 mg/dL (1.6-2.6); Sodium 135 mmol/L (136-145)
[2023-10-04] MEDS: Atorvastatin Calcium 40 MG TAB PO SCH (20:18)
[2023-10-05] MEDS: Furosemide 40 MG TAB PO SCH (08:02)
[2023-10-07 07:11] LABS: #Basophils Less than 0.03 10x3/uL (0.0-0.2); %Basophils 0.2 % (0.0-1.0); %Eosinophils 0.7 % (0.0-10.0); %Lymphocytes 16.6 % (21.0-51.0); %Monocytes 17.7 % (0.0-10.0); %Neutrophils 64.4 % (42.0-75.0); Hematocrit 36.9 % (36.0-47.0); Hemoglobin 11.5 g/dL (12.0-16.0); Mean Corpuscular HGB CONC 31.2 g/dL (32.0-36.0); Mean Corpuscular Hemoglobin 29.3 pg (27.0-31.0); Mean Corpuscular Volume 93.9 fL (78.0-98.0); Mean Platelet Volume 10.4 fL (7.4-10.4); Platelet Count 371 10x3/uL (130-400); RBC Distribution Width 14.4 % (11.5-14.5); Red Blood Cell (RBC) Count 3.93 mill/uL (4.20-5.40)
[2023-10-07 08:04] LABS: Anion Gap 10 mmol/L (10-20); BUN (Urea Nitrogen) 19 mg/dL (9.8-20.1); Calc. Creatinine Clearance 225 mL/min (70-130); Carbon Dioxide 34 mmol/L (23-31); Chloride 97 mmol/L (98-107); Estimated GFR 100; Glucose 91 mg/dL (80-115); Sodium 137 mmol/L (136-145)
[2023-10-07 08:10] LABS: Calcium 8.8 mg/dL (7.8-10.44)
[2023-10-07] MEDS: HYDROcodone/Acetaminophen 5/325 mg Tablet PO PRN (12:19)
[2023-10-08 17:39] VITALS: BP 125/73; TEMP 97.8
== END 2023-10-08 19:15 | DRG 291 ==
LOC: ERS 20:18 → 2SE 23:51 → INTOOBSV 23:51 → OBSVTOIN 10-02 11:47 → T4-B 10-04 17:59
PROVIDERS: ADMIT Internal Medicine; ATTEND Family Medicine
DX: I11.0 Hypertensive heart disease with heart failure (principal); I50.23 Acute on chronic systolic (congestive) heart failure; Z68.43 Body mass index [BMI] 50.0-59.9, adult; I48.19 Other persistent atrial fibrillation; I47.20 Ventricular tachycardia, unspecified; D64.9 Anemia, unspecified; E66.01 Morbid (severe) obesity due to excess calories; F41.9 Anxiety disorder, unspecified; R53.81 Other malaise; I42.9 Cardiomyopathy, unspecified; F14.10 Cocaine abuse, uncomplicated; Z91.148 Patient's other noncompliance with medication regimen for other reason; Z79.899 Other long term (current) drug therapy; Z79.01 Long term (current) use of anticoagulants; Z79.82 Long term (current) use of aspirin; Z71.51 Drug abuse counseling and surveillance of drug abuser
CPT/HCPCS: 36415; 71045; 80048; 80053; 80306; 80307; 81001; 82550; 83605; 83690; 83735; 83880; 84443; 84484; 85025; 85610; 85730; 87040; 87086; 87149; 93005; 93970; 94640; 96374; 96375; 96376; 97139; G0378; J1940; J2930; J7611; J7620

== ENCOUNTER 2023-11-21 19:34 | Inpatient (IN) | payer OTHER ==
[2023-11-21 20:50] LABS: #Basophils 0.08 10x3/uL (0.0-0.2); %Basophils 0.6 % (0.0-1.0); %Eosinophils 1.9 % (0.0-10.0); %Lymphocytes 18.7 % (21.0-51.0); %Monocytes 12.9 % (0.0-10.0); %Neutrophils 65.4 % (42.0-75.0); Hematocrit 28.8 % (36.0-47.0); Mean Corpuscular HGB CONC 31.3 g/dL (32.0-36.0); Mean Corpuscular Hemoglobin 28.1 pg (27.0-31.0); Mean Platelet Volume 9.8 fL (7.4-10.4); Platelet Count 410 10x3/uL (130-400); RBC Distribution Width 14.5 % (11.5-14.5)
[2023-11-21 21:06] LABS: ALT (SGPT) 52 U/L (8-55); AST (SGOT) 55 U/L (5-34); Albumin 2.3 g/dL (3.4-4.8); Alkaline Phosphatase 264 U/L (40-110); Anion Gap 14 mmol/L (10-20); BUN (Urea Nitrogen) 14 mg/dL (9.8-20.1); Bilirubin, Total 1.3 mg/dL (0.2-1.2); Calc. Creatinine Clearance 0 mL/min (70-130); Calcium 8.8 mg/dL (7.8-10.44); Carbon Dioxide 29 mmol/L (23-31); Chloride 91 mmol/L (98-107); Estimated GFR 96; Globulin 4.9 g/dL (2.4-3.5); Glucose 94 mg/dL (80-115); Potassium 3.9 mmol/L (3.5-5.1); Protein, Total 7.2 g/dL (5.8-8.1); Sodium 130 mmol/L (136-145)
[2023-11-21 21:12] LABS: Troponin I 0.024 ng/mL (< 0.028)
[2023-11-21] MEDS ORDERED: Sodium Chloride 0.9% 100 ML ONE (21:25)
[2023-11-21] MEDS ORDERED: Cefepime 2 GM VIAL ONE (21:25)
[2023-11-22] MEDS ORDERED: Ondansetron PF 4 MG/2 ML Vial IVP PRN (00:09)
[2023-11-22] MEDS ORDERED: Ondansetron ODT 4 MG TAB PO PRN (00:09)
[2023-11-22] MEDS ORDERED: Vancomycin 1 GM in Sodium Chloride 0.9% 500 ML IVPB SCH (00:15)
[2023-11-22] MEDS ORDERED: Furosemide 40 MG (4 mL) VIAL ONE (00:16)
[2023-11-22] MEDS ORDERED: traMADol HCl 50 MG TAB ONE (01:36)
[2023-11-22] MEDS: traMADol HCl 50 MG TAB PO PRN (01:40)
[2023-11-22] MEDS: Vancomycin (BATCH) 2.5 GM in Premix 1 BAG IVPB SCH (02:21)
[2023-11-22] MEDS ORDERED: metroNIDAZOLE 500 MG (100 mL) BAG ONE ×2 (03:36→12:51)
[2023-11-22] MEDS: metroNIDAZOLE 500 MG in Premix 1 BAG IVPB SCH (03:40)
[2023-11-22 04:17] LABS: #Basophils 0.07 10x3/uL (0.0-0.2); %Basophils 0.7 % (0.0-1.0); %Eosinophils 2.3 % (0.0-10.0); %Lymphocytes 19.6 % (21.0-51.0); %Monocytes 13.1 % (0.0-10.0); %Neutrophils 63.9 % (42.0-75.0); Hematocrit 36.4 % (36.0-47.0); Hemoglobin 10.7 g/dL (12.0-16.0); Mean Corpuscular HGB CONC 29.4 g/dL (32.0-36.0); Mean Corpuscular Hemoglobin 29.2 pg (27.0-31.0); Mean Corpuscular Volume 99.2 fL (78.0-98.0); Mean Platelet Volume 10.8 fL (7.4-10.4); Platelet Count 230 10x3/uL (130-400); RBC Distribution Width 14.9 % (11.5-14.5); Red Blood Cell (RBC) Count 3.67 mill/uL (4.20-5.40)
[2023-11-22] MEDS ORDERED: Sodium Chloride 0.9% 100 ML ONE (05:50)
[2023-11-22] MEDS ORDERED: Cefepime 2 GM VIAL ONE (05:50)
[2023-11-22] MEDS: Cefepime 2 GM in Sodium Chloride 0.9% 100 ML IVPB SCH (05:53)
[2023-11-22] MEDS: Acetaminophen 325 MG TAB PO SCH (05:54)
[2023-11-22 08:39] LABS: Lactic Acid 1.97 mmol/L (0.5-2.2)
[2023-11-22 08:41] VITALS: BMI 40.8
[2023-11-22 08:41] LABS: ALT (SGPT) 52 U/L (8-55); AST (SGOT) 47 U/L (5-34); Albumin 2.5 g/dL (3.4-4.8); Alkaline Phosphatase 272 U/L (40-110); Anion Gap 18 mmol/L (10-20); BUN (Urea Nitrogen) 14 mg/dL (9.8-20.1); Bilirubin, Total 1.2 mg/dL (0.2-1.2); Calc. Creatinine Clearance 130 mL/min (70-130); Carbon Dioxide 28 mmol/L (23-31); Chloride 91 mmol/L (98-107); Estimated GFR 84; Globulin 5.4 g/dL (2.4-3.5); Glucose 74 mg/dL (80-115); Potassium 4.3 mmol/L (3.5-5.1); Protein, Total 7.9 g/dL (5.8-8.1); Sodium 133 mmol/L (136-145); Vancomycin, Random 21.2 ug/mL (See Comment)
[2023-11-22] MEDS ORDERED: Aspirin Chewable 81 MG TAB ONE (08:49)
[2023-11-22] MEDS ORDERED: HYDROcodone/Acetaminophen 5/325 mg Tablet ONE ×2 (08:49→13:10)
[2023-11-22] MEDS ORDERED: Apixaban 5 MG TAB ONE (08:50)
[2023-11-22] MEDS ORDERED: Famotidine 20 MG TAB ONE (08:50)
[2023-11-22] MEDS: HYDROcodone/Acetaminophen 5/325 mg Tablet PO PRN (09:14)
[2023-11-22] MEDS: Famotidine 20 MG TAB PO SCH (09:14)
[2023-11-22] MEDS: Apixaban 5 MG TAB PO SCH (09:14)
[2023-11-22] MEDS ORDERED: Aspirin 81 mg Enteric Coated Tablet ONE (09:21)
[2023-11-22] MEDS: Aspirin 81 mg Enteric Coated Tablet PO SCH (09:22)
[2023-11-22] MEDS ORDERED: VANCOMYCIN IVPB PRN (09:59)
[2023-11-22] MEDS ORDERED: Vancomycin HCl 750 MG in Sodium Chloride 0.9% 250 ML 250 ML IVPB SCH (10:00)
[2023-11-22] MEDS ORDERED: Vancomycin 1 GM/200 ML (FROZEN) BAG ONE (11:00)
[2023-11-22] MEDS: Vancomycin 1 GM in Premix 1 BAG IVPB SCH (11:04)
[2023-11-22] MEDS ORDERED: Acetaminophen 325 MG TAB ONE (12:51)
[2023-11-22] MEDS ORDERED: Digoxin 0.5 MG/2 ML AMP ONE (12:51)
[2023-11-22] MEDS: Digoxin 0.5 MG/2 ML AMP SLOW IVP SCH ×2 (12:55→17:02)
[2023-11-22] MEDS: QUEtiapine 25 MG TAB PO SCH (18:28)
[2023-11-22] MEDS: Lorazepam 0.5 MG TAB PO PRN (18:28)
[2023-11-22 20:24] LABS: Bilirubin Negative (Negative); Blood, Urine Negative (Negative); Clarity Turbid (Clear); Glucose, Urine (Dipstick) Normal (Negative); Ketone, Urine Negative (Negative); Leukocyte Negative Leu/uL (Negative); Nitrite Negative (Negative); Protein, Urine (Dipstick) 20 mg/dL (Neg-Trace); RBC/HPF 0-3 HPF (0-3); Specific Gravity, Urine 1.021 (1.002-1.036)
[2023-11-22 21:03] LABS: Bacteria/HPF 1+ HPF (None Seen)
[2023-11-22 21:04] LABS: Transitional Epithelial 0-3 HPF (None Seen)
[2023-11-22 21:13] LABS: Amphetamine Not Detected (NotDetected); Barbiturates Screen Not Detected (NotDetected); Benzodiazepine Screen Detected (NotDetected); Cocaine Metabolite Screen Not Detected (NotDetected); Methadone Not Detected (NotDetected); Methamphetamine Not Detected (NotDetected); Opiate Screen Detected (NotDetected); Oxycodone Screen Not Detected (NotDetected); Phencyclidine (PCP) Not Detected (NotDetected); THC/Cannabinoid Screen Not Detected (NotDetected); Tricyclic Screen Not Detected (NotDetected)
[2023-11-22] MEDS: Vancomycin HCl 750 MG in Sodium Chloride 0.9% 250 ML 250 ML IVPB SCH (22:41)
[2023-11-22] MEDS: Enoxaparin 120 MG/0.8 ML SYRINGE SC SCH (22:44)
[2023-11-23] MEDS: Digoxin 0.25 MG TAB PO SCH (08:35)
[2023-11-23 12:36] LABS: #Basophils 0.07 10x3/uL (0.0-0.2); %Basophils 0.5 % (0.0-1.0); %Eosinophils 1.4 % (0.0-10.0); %Lymphocytes 11.3 % (21.0-51.0); %Monocytes 10.5 % (0.0-10.0); %Neutrophils 75.8 % (42.0-75.0); Hematocrit 28.2 % (36.0-47.0); Mean Corpuscular HGB CONC 31.9 g/dL (32.0-36.0); Mean Corpuscular Hemoglobin 29.1 pg (27.0-31.0); Mean Corpuscular Volume 91.3 fL (78.0-98.0); Mean Platelet Volume 9.9 fL (7.4-10.4); Platelet Count 463 10x3/uL (130-400); RBC Distribution Width 14.7 % (11.5-14.5); Red Blood Cell (RBC) Count 3.09 mill/uL (4.20-5.40)
[2023-11-23 12:40] VITALS: BMI 40.8
[2023-11-23 13:02] LABS: ALT (SGPT) 34 U/L (8-55); AST (SGOT) 29 U/L (5-34); Albumin 2.2 g/dL (3.4-4.8); Alkaline Phosphatase 242 U/L (40-110); Anion Gap 15 mmol/L (10-20); BUN (Urea Nitrogen) 14 mg/dL (9.8-20.1); Bilirubin, Total 1.3 mg/dL (0.2-1.2); CRP,High Sensitivity (Inhouse) 14.91 mg/dL (< or = 0.5); Calc. Creatinine Clearance 134 mL/min (70-130); Calcium 8.7 mg/dL (7.8-10.44); Carbon Dioxide 26 mmol/L (23-31); Chloride 92 mmol/L (98-107); Estimated GFR 87; Globulin 4.8 g/dL (2.4-3.5); Glucose 81 mg/dL (80-115); Potassium 4.3 mmol/L (3.5-5.1); Sodium 129 mmol/L (136-145)
[2023-11-23] MEDS ORDERED: Piperacillin/Tazobactam 3.375 GM in Sodium Chloride 0.9% 100 ML IVPB SCH (13:15)
[2023-11-23 13:21] LABS: HIV (1/2) Antibody/Antigen NONREACTIVE (NonReactive); HIV 1/2 INDEX 0.07 S/CO (<1.00)
[2023-11-23 15:23] LABS: Syphilis Antibody Index 5.14 S/CO (<1.00 Non-Reactive)
[2023-11-23 15:49] LABS: Syphilis Antibody INDETERMINATE (Nonreactive); Syphilis Titer Non-Reactive Titer (Negative)
[2023-11-23] MEDS: Morphine 2 MG/ML VIAL SLOW IVP PRN (16:05)
[2023-11-23] MEDS: Piperacillin/Tazobactam 3.375 GM in Sodium Chloride 0.9% 100 ML IVPB SCH ×2 (16:06→20:27)
[2023-11-23] MEDS: QUEtiapine 25 MG TAB PO SCH (20:29)
[2023-11-24 05:48] LABS: #Basophils 0.05 10x3/uL (0.0-0.2); %Basophils 0.4 % (0.0-1.0); %Lymphocytes 14.3 % (21.0-51.0); %Monocytes 11.5 % (0.0-10.0); %Neutrophils 72.2 % (42.0-75.0); Hematocrit 28.1 % (36.0-47.0); Hemoglobin 8.7 g/dL (12.0-16.0); Mean Corpuscular Hemoglobin 28.2 pg (27.0-31.0); Mean Corpuscular Volume 90.9 fL (78.0-98.0); Mean Platelet Volume 9.7 fL (7.4-10.4); Platelet Count 424 10x3/uL (130-400); RBC Distribution Width 14.9 % (11.5-14.5); Red Blood Cell (RBC) Count 3.09 mill/uL (4.20-5.40)
[2023-11-24 06:00] LABS: ALT (SGPT) 27 U/L (8-55); AST (SGOT) 24 U/L (5-34); Alkaline Phosphatase 202 U/L (40-110); Anion Gap 14 mmol/L (10-20); BUN (Urea Nitrogen) 12 mg/dL (9.8-20.1); Bilirubin, Total 1.5 mg/dL (0.2-1.2); Calc. Creatinine Clearance 149 mL/min (70-130); Calcium 8.8 mg/dL (7.8-10.44); Carbon Dioxide 26 mmol/L (23-31); Chloride 95 mmol/L (98-107); Estimated GFR 97; Globulin 4.4 g/dL (2.4-3.5); Glucose 78 mg/dL (80-115); Protein, Total 6.4 g/dL (5.8-8.1); Sodium 131 mmol/L (136-145); Vancomycin, Random 21.4 ug/mL (See Comment)
[2023-11-24 06:09] LABS: CRP,High Sensitivity (Inhouse) 16.64 mg/dL (< or = 0.5)
[2023-11-24] MEDS: Furosemide 20 MG TAB PO SCH (12:00)
[2023-11-24] MEDS ORDERED: Vancomycin 1 GM in Sodium Chloride 0.9% 250 ML 250 ML IVPB SCH (21:00)
[2023-11-24] MEDS: Vancomycin 1 GM in Premix 1 BAG IVPB SCH (21:53)
[2023-11-25 05:10] LABS: #Basophils 0.03 10x3/uL (0.0-0.2); %Basophils 0.2 % (0.0-1.0); %Eosinophils 1.9 % (0.0-10.0); %Lymphocytes 13.7 % (21.0-51.0); %Monocytes 11.5 % (0.0-10.0); %Neutrophils 72.2 % (42.0-75.0); Hematocrit 29.8 % (36.0-47.0); Hemoglobin 9.3 g/dL (12.0-16.0); Mean Corpuscular HGB CONC 31.2 g/dL (32.0-36.0); Mean Corpuscular Hemoglobin 28.9 pg (27.0-31.0); Mean Corpuscular Volume 92.5 fL (78.0-98.0); Mean Platelet Volume 9.7 fL (7.4-10.4); Platelet Count 430 10x3/uL (130-400); RBC Distribution Width 14.6 % (11.5-14.5); Red Blood Cell (RBC) Count 3.22 mill/uL (4.20-5.40)
[2023-11-25 05:32] LABS: ALT (SGPT) 25 U/L (8-55); AST (SGOT) 27 U/L (5-34); Albumin 2.2 g/dL (3.4-4.8); Alkaline Phosphatase 183 U/L (40-110); Anion Gap 15 mmol/L (10-20); BUN (Urea Nitrogen) 10 mg/dL (9.8-20.1); Bilirubin, Total 1.3 mg/dL (0.2-1.2); Calc. Creatinine Clearance 161 mL/min (70-130); Calcium 9.2 mg/dL (7.8-10.44); Carbon Dioxide 27 mmol/L (23-31); Chloride 97 mmol/L (98-107); Estimated GFR 98; Globulin 4.7 g/dL (2.4-3.5); Glucose 86 mg/dL (80-115); Iron 34 ug/dL (50-170); Iron Binding Capacity, Total 166 mcg/dL (265-497); Potassium 3.7 mmol/L (3.5-5.1); Protein, Total 6.9 g/dL (5.8-8.1); Sodium 135 mmol/L (136-145)
[2023-11-25 05:41] LABS: CRP,High Sensitivity (Inhouse) 17.14 mg/dL (< or = 0.5)
[2023-11-25 05:50] LABS: Iron 37 ug/dL (50-170); Iron Binding Capacity, Total 170 mcg/dL (265-497)
[2023-11-25 05:56] LABS: Vancomycin, Random 22.5 ug/mL (See Comment)
[2023-11-25] MEDS: Furosemide 40 MG TAB PO SCH (09:52)
[2023-11-26 06:05] LABS: #Basophils 0.07 10x3/uL (0.0-0.2); %Basophils 0.6 % (0.0-1.0); %Eosinophils 4.5 % (0.0-10.0); %Lymphocytes 18.3 % (21.0-51.0); %Monocytes 12.1 % (0.0-10.0); Hematocrit 33.5 % (36.0-47.0); Hemoglobin 10.2 g/dL (12.0-16.0); Mean Corpuscular HGB CONC 30.4 g/dL (32.0-36.0); Mean Corpuscular Hemoglobin 28.1 pg (27.0-31.0); Mean Corpuscular Volume 92.3 fL (78.0-98.0); Mean Platelet Volume 10.1 fL (7.4-10.4); Platelet Count 418 10x3/uL (130-400); RBC Distribution Width 14.9 % (11.5-14.5); Red Blood Cell (RBC) Count 3.63 mill/uL (4.20-5.40)
[2023-11-26 06:07] LABS: CRP,High Sensitivity (Inhouse) 13.83 mg/dL (< or = 0.5)
[2023-11-26 06:08] LABS: ALT (SGPT) 33 U/L (8-55); AST (SGOT) 50 U/L (5-34); Albumin 2.3 g/dL (3.4-4.8); Alkaline Phosphatase 190 U/L (40-110); Anion Gap 17 mmol/L (10-20); BUN (Urea Nitrogen) 8 mg/dL (9.8-20.1); Bilirubin, Total 1.1 mg/dL (0.2-1.2); Calc. Creatinine Clearance 161 mL/min (70-130); Calcium 9.2 mg/dL (7.8-10.44); Carbon Dioxide 25 mmol/L (23-31); Chloride 96 mmol/L (98-107); Estimated GFR 98; Globulin 4.9 g/dL (2.4-3.5); Glucose 69 mg/dL (80-115); Potassium 4.2 mmol/L (3.5-5.1); Protein, Total 7.2 g/dL (5.8-8.1); Sodium 134 mmol/L (136-145)
[2023-11-26] MEDS: Morphine 4 MG/ML VIAL SLOW IVP PRN (20:42)
[2023-11-27 09:40] LABS: #Basophils 0.08 10x3/uL (0.0-0.2); %Basophils 0.7 % (0.0-1.0); %Eosinophils 3.7 % (0.0-10.0); %Monocytes 11.9 % (0.0-10.0); %Neutrophils 64.9 % (42.0-75.0); Hematocrit 30.7 % (36.0-47.0); Hemoglobin 9.2 g/dL (12.0-16.0); Mean Corpuscular Hemoglobin 28.6 pg (27.0-31.0); Mean Corpuscular Volume 95.3 fL (78.0-98.0); Mean Platelet Volume 9.7 fL (7.4-10.4); Platelet Count 476 10x3/uL (130-400); RBC Distribution Width 15.1 % (11.5-14.5); Red Blood Cell (RBC) Count 3.22 mill/uL (4.20-5.40)
[2023-11-27 09:58] LABS: ALT (SGPT) 31 U/L (8-55); AST (SGOT) 40 U/L (5-34); Albumin 2.2 g/dL (3.4-4.8); Alkaline Phosphatase 182 U/L (40-110); Anion Gap 15 mmol/L (10-20); BUN (Urea Nitrogen) 9 mg/dL (9.8-20.1); Calc. Creatinine Clearance 164 mL/min (70-130); Calcium 9.1 mg/dL (7.8-10.44); Carbon Dioxide 29 mmol/L (23-31); Chloride 97 mmol/L (98-107); Estimated GFR 99; Globulin 4.9 g/dL (2.4-3.5); Glucose 78 mg/dL (80-115); Magnesium 1.9 mg/dL (1.6-2.6); Potassium 4.2 mmol/L (3.5-5.1); Protein, Total 7.1 g/dL (5.8-8.1); Sodium 137 mmol/L (136-145)
[2023-11-27 10:30] LABS: Thyroid Stimulating Hormone 3.4747 uIU/mL (0.35-4.94)
[2023-11-27] MEDS: Albuterol 2.5 MG (3 mL) NEB NEB PRN (13:06)
[2023-11-28 07:04] LABS: ALT (SGPT) 31 U/L (8-55); AST (SGOT) 37 U/L (5-34); Albumin 2.3 g/dL (3.4-4.8); Alkaline Phosphatase 184 U/L (40-110); Anion Gap 15 mmol/L (10-20); BUN (Urea Nitrogen) 14 mg/dL (9.8-20.1); Bilirubin, Total 1.1 mg/dL (0.2-1.2); Calc. Creatinine Clearance 172 mL/min (70-130); Calcium 9.4 mg/dL (7.8-10.44); Carbon Dioxide 24 mmol/L (23-31); Chloride 100 mmol/L (98-107); Estimated GFR 100; Globulin 4.8 g/dL (2.4-3.5); Glucose 88 mg/dL (80-115); Magnesium 2.1 mg/dL (1.6-2.6); Potassium 3.9 mmol/L (3.5-5.1); Protein, Total 7.1 g/dL (5.8-8.1); Sodium 135 mmol/L (136-145)
[2023-11-30] MEDS: QUEtiapine 25 MG TAB PO SCH (20:09)
[2023-12-02] MEDS: HYDROcodone/Acetaminophen 5/325 mg Tablet PO PRN (15:06)
[2023-12-03 16:05] VITALS: BP 140/76; TEMP 98.1
== END 2023-12-03 16:35 | DRG 871 ==
LOC: ERS 19:34 → 2NO 11-22 00:05 → ERHOLD 11-22 00:09 → 2NO 11-22 14:31 → MSONC 11-26 11:52
PROVIDERS: ADMIT Internal Medicine; ATTEND Internal Medicine
DX: A41.51 Sepsis due to Escherichia coli [E. coli] (principal); L89.894 Pressure ulcer of other site, stage 4; E87.1 Hypo-osmolality and hyponatremia; L03.116 Cellulitis of left lower limb; Z68.43 Body mass index [BMI] 50.0-59.9, adult; I50.42 Chronic combined systolic (congestive) and diastolic (congestive) heart failure; G93.40 Encephalopathy, unspecified; I42.9 Cardiomyopathy, unspecified; A41.52 Sepsis due to Pseudomonas; Z51.5 Encounter for palliative care; E66.01 Morbid (severe) obesity due to excess calories; I48.91 Unspecified atrial fibrillation; D64.9 Anemia, unspecified; I11.0 Hypertensive heart disease with heart failure; I08.1 Rheumatic disorders of both mitral and tricuspid valves; F32.A Depression, unspecified; D75.839 Thrombocytosis, unspecified; Z79.01 Long term (current) use of anticoagulants; Z79.899 Other long term (current) drug therapy; Z91.148 Patient's other noncompliance with medication regimen for other reason; Z74.01 Bed confinement status
CPT/HCPCS: 36415; 36416; 71045; 76705; 80053; 80202; 80306; 81001; 82607; 82728; 82746; 83540; 83550; 83605; 83735; 83880; 84145; 84443; 84484; 85025; 85046; 86141; 86593; 86780; 86850; 86900; 86901; 87040; 87070; 87077; 87186; 87205; 87389; 93005; 94640; 96374; 96375; 97139; J0692; J1160; J1650; J1940; J2272; J2543; J3370; J3370-JW; J7050; J7611